=== PATIENT | female | born 1945 | race Caucasian/White ===

== ENCOUNTER 2025-05-10 10:05 | Outpatient (CLI) | payer MEDICARE ==
[~2025-05-10] VITALS: Ht 160 cm; Wt 69.4 kg
[2025-05-10 10:26] LABS: TOTAL HEMOGLOBIN 15.2 G/dl (12.0-16.0)
[2025-05-10] MEDS: albuterol 2.5 MG/3 ML nebule NEB ONE (11:08)
[2025-05-10 11:12] VITALS: PULSE 62; RESP 16; O2SAT 95
[2025-05-10 11:24] VITALS: PULSE 62; RESP 16
--- NOTE | 2025-05-10 15:32 | PROCEDURE NOTE - Respiratory ---
Procedure Note-Respiratory Providers to Copies To 1: GARIMA MAN MD Procedure Name: This is a complete pulmonary function study dated May 10, 2025. Hemoglobin measurement was done as part of the study. Spirometry measurements: The forced vital capacity is in the lower range of normal. The FEV1 measurement is clearly reduced. The FEV1 ratio is also reduced. Several of the flow rate measurements show significant reduction. After inhaled bronchodilator was administered, some of the flow rates show slight improvement. Lung volume measurements: The total lung capacity is in the normal range. The functional residual capacity is normal. The residual volume is borderline elevated. Lung diffusion measurement: The DLCO is clearly reduced. It is noted that the KVO measurement is significantly reduced. The alveolar volume measurement is only mildly low. It is noted that the hemoglobin measurement is in the normal range. Airway resistance measurement: The airway resistance is slightly elevated. Overall conclusion: This study shows severe abnormality. There is evidence for severe obstructive ventilatory defect. These findings are consistent with the patient's diagnosis of COPD. Continued use of bronchodilator medication is recommended for this patient. The DLCO measurement is significantly reduced and this raises the possibility of a significant emphysema component in this patient's COPD process. We have no previous studies for comparison. Close pulmonary follow-up is recommended for this patient. GARIMA MAN MD May 10, 2025 15:32
== END 2025-05-10 23:59 | disposition home or self-care (01) ==
LOC: RT 10:05
PROVIDERS: ATTEND Internal Medicine Pulmonary Disease
DX: J44.9 Chronic obstructive pulmonary disease, unspecified (principal)
CPT/HCPCS: 85018; 94060; 94727; 94729; 94760